=== PATIENT | male | born 1950 | race Caucasian/White ===

== ENCOUNTER 2025-01-03 08:55 | Outpatient (AMB) | payer MEDICARE, SELFPAY ==
--- NOTE | 2025-01-03 08:58 | A.OFFVIS_ITS ---
Intake Visit Reasons: urinary urgency/frequency and hesitation Intake Note: New Patient presents for initial visit for urinary urgency, frequency, and hesitation Urology Medications: none Blood Thinner: Apixaban PVR: 0ml's Political Science Chair Required: No Accompanied by: Self / Same As Patient Allergies No Known Allergies Allergy (Verified 01/03/25 09:33) Medication List - Last Reconciled 01/03/25 by BERNARDINO Goyal apixaban (Eliquis) 5 mg PO BID atorvastatin mg PO DAILY lisinopril mg PO DAILY metoprolol tartrate 50 mg PO BID HPI Comments Details: Carlos A Sullivan is a very pleasant 74-year-old male patient of Dr. Cote he has a past medical history of obesity, hyperlipidemia, tremors, mild aortic insufficiency, paroxysmal AFib, actinic keratosis, seborrheic keratosis, presbyopia, myopia, glaucoma, ETOH abuse, hypertension, and hypercholesteremia. He presents to the office today as a new patient for nocturia. In discussion with the patient today he reports noting over the last year to be having issues with nocturia up to 3 times per night. When asked he otherwise denies any bothersome urinary issues. He denies incontinence, hematuria, dysuria, foul smelling urine, changes to urinary stream, flank pain, fever, and or chills. He reports a previous history of prostatitis many years ago. VALERIA performed smooth and no suspicious nodules palpated. He denies any signs or symptoms of sleep apnea. We discussed potential causes of nocturia as well as further treatment options and risks and benefits of these treatment options. We discussed lifestyle modifications such as limiting fluids 2-3 hours prior to bed. We discussed obtaining PSA and retroperitoneal ultrasound for further assessment evaluation. In office urinalysis results reviewed with the patient today. PVR 0 mL. He otherwise offers no other issues or concerns at this time. [facility] Medical History Class 1 obesity due to excess calories with body mass index (BMI) of 31.0 to 31.9 in adult Body mass index (BMI) of 31.0 to 31.9 in adult Lower urinary tract symptoms (LUTS) Mixed hyperlipidemia Tremor of left hand Dyspnea on exertion Abnormal prostate specific antigen (PSA) Benign-appearing pigmented skin lesion IFG (impaired fasting glucose) Mild AI (aortic insufficiency) Neoplasm of uncertain behavior of skin Atrial fibrillation with rapid ventricular response Paroxysmal atrial fibrillation Primary osteoarthritis of both knees Actinic keratoses Seborrheic keratosis Presbyopia of both eyes Myopia 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 Glaucoma suspect of both eyes Combined forms of age-related cataract of both eyes ETOH abuse Primary hypertension Nevus of face Knee pain Hypercholesteremia Review of Systems Eyes Reports as per HPI ENT Reports no additional complaints Card Reports as per HPI Resp Reports as per HPI GI Reports as per HPI Reports no additional complaints Musc Reports no additional complaints Skin/Breast Reports as per HPI Neuro Reports as per HPI Psych Reports as per HPI Endo Reports no additional complaints Physical Exam Const General: cooperative, comfortable, no acute distress, well developed, alert and awake Nutritional Appearance: overweight Orientation/consciousness: patient oriented x3 Limitations: no limitations HEENT Head: Yes normal to inspection, Yes normocephalic and Yes atraumatic Ears: hearing grossly normal bilaterally Eyes General: appearance normal, both eyes and all related structures Neck Neck: Yes normal visual inspection and Yes trachea midline Chest Chest palpation & inspection: normal inspection of the chest Resp Effort & Inspection: normal respiratory effort and able to speak in complete sentences Cardio Rate: regular rate GI Inspection: Yes normal to inspection General: Yes no CVA tenderness Back/Spine/Pelvis Back: no CVA tenderness Skin General skin exam: no rashes or lesions noted Neuro General: patient oriented x3 Extrem General: Yes normal to inspection Psych Appearance: grossly normal and well kempt Mental Status: mental status grossly normal Speech and movement: Normal speech and movement present and Clear speech present Affect: normal affect Attitude: cooperative Thought process: Normal thought process present Thought content: Normal thought content present Insight: Fair insight present (Psych) Judgement: Fair judgement present (Psych) Office Procedures Post Void Residual Post Residual Void Post Void Residual (PVR): 0 05213-[id number] Void Residual by ultrasound Results AMB Urinalysis, Automated UA Leukoctes 0 Bertram/uL Last Edit by Smith Varela on 01/03/25 09:14 UA Nitrite Last Edit by Smith Varela on 01/03/25 09:14 UA Urobilinogen 0.2 mg/dL Last Edit by Smith Varela on 01/03/25 09:14 UA Protein 0 mg/dL Last Edit by Smith Varela on 01/03/25 09:14 UA pH 6.0 Last Edit by Smith Varela on 01/03/25 09:14 UA Blood 0 José Miguel/uL Last Edit by Smith Varela on 01/03/25 09:14 UA Specific [place] 1.030 Last Edit by Smith Varela on 01/03/25 09:14 UA Ketone Last Edit by Smith Varela on 01/03/25 09:14 UA Bilirubin 0 mg/dL Last Edit by Smith Varela on 01/03/25 09:14 UA Glucose 0 mg/dL Last Edit by Smith Varela on 01/03/25 09:14 Results Reviewed Results Reviewed: Laboratory Last Values Urine pH (Auto) 6.0 01/03/25 09:13 Specific [place] (Auto) 1.030 01/03/25 09:13 Urine Protein (Auto) 0 mg/dL 01/03/25 09:13 Glucose (UA)(Auto) 0 mg/dL 01/03/25 09:13 Urine Blood (Auto) 0 José Miguel/uL 01/03/25 09:13 Urine Bilirubin (Auto) 0 mg/dL 01/03/25 09:13 Urine Urobilinogen (Auto) 0.2 mg/dL 01/03/25 09:13 Leukocyte Esterase (Auto) 0 Bertram/uL 01/03/25 09:13 Assessment & Plan Assessment & Plan (1) Nocturia: Code(s): R35.1 - Nocturia Category: Medical Plan In office urinalysis results reviewed with the patient today; as noted above. PVR 0 mL. VALERIA performed. We discussed potential causes of nocturia as well as further treatment options and risks and benefits of these treatment options. We discussed potential near future in office cystoscopy and or urodynamics for further assessment evaluation. Will obtain PSA for further assessment evaluation. Will obtain retroperitoneal ultrasound for further assessment evaluation. We discussed lifestyle modifications to assist with nocturia. He denies any signs and symptoms of sleep apnea. Follow-up in 1-3 months with imaging, PSA, and PVR; or sooner with any issues, concerns, and or questions. Orders: Orders AMB Urinalysis Automated Today Z13.9 - Encounter for screening, unspecified AMB Post Void Residual by ultrasound Today Z13.9 - Encounter for screening, unspecified US retroperitoneal comp Today R35.1 - Nocturia Prostate Specific Antigen Today R35.1 - Nocturia Patient Instructions: The patient had an opportunity to ask questions regarding the treatment plan. All questions were answered. Physical exam, labs, and imaging were discussed and reviewed in detail. As well as risks, benefits, and discussion of treatment choices. No major barriers to understanding were identified. The patient expressed understanding and agreement with the above treatment plan. The patient was made aware they should contact our office by phone for worsening of their current condition, the appearance of new symptoms, or with any questions or concerns. Compliance is encouraged with any medications and follow up testing that is ordered. It is a privilege to be allowed the opportunity to participate in? your urological care.? Again, if you have any questions or concerns If you have any questions or concerns please do not hesitate to contact me. The office is [phone]. This note is constructed using voice recognition software. While every effort has been made to ensure accuracy naval architect specialist errors may have been included. Yours sincerely, BERNARDINO Goyal Coding Level of Care Code New Pt Level 3 (59991) Diagnoses Nocturia R35.1 CPT Codes Post Residual Void - PVR CPT Code: 38577-[id number] Void Residual by ultrasound ([id number])
--- OUTSIDE RECORDS SUMMARY | 2025-01-03 09:29 | XMS_ITS | Encounter Summary ---
Author Organization [employer] Address [address] [place] [address] [address] [place] [address] Care Team Providers Care Salesperson Florist Supplies Name Role Phone Bita Cote MD Primary Care Provider + Encounter Details Date Type Department Care Team (Latest Contact Info) Description 12/13/2020 Abstract [facility] CONVERSIONS Dental, Provider, DDS Social History Tobacco Use Types Packs/Day Years Used Date Smoking Tobacco: Never Assessed Sex and Gender Information Value Date Recorded Sex Assigned at Male 07/03/2022 7:04 PM EDT Legal Sex Male 5:36 PM EDT Gender Identity Male 07/03/2022 7:04 PM EDT Sexual Orientation Choose not to disclose 2021 7:04 PM EDT documented as of this encounter Plan of Treatment Upcoming Encounters Date Type Department Care Team (Late st Contact Info) Description 01/17/2025 10:00 AM EDT Office Visit [facility] [address] [place] [phone] Bita Cote MD [address] [place] [phone] 02/24/2025 10:00 AM EDT Office Visit [facility] [address] [place] [phone] Tad Babb MD [address] [place] [phone] documented as of this encounter Visit Diagnoses Not on filedocumented in this encounter Care Teams Salesperson Florist Supplies Relationship Specialty Start Date End Date Bita Cote MD [address] [place] [address] PCP - General Family Medicine 08/31/18 documented as of this encounter
--- OUTSIDE RECORDS SUMMARY | 2025-01-03 09:29 | XMS_ITS | Encounter Summary ---
Author Organization [email or web address] Address [address] [place] [address] 7 [place] [address] Care Team Providers Care Senior Analyst Developer Name Role Phone Bita Cote MD Primary Care Provider + Reason for Visit * Reason Comments Med Refill Encounter Details Date Type Department Care Team (Late st Contact Info) Description 01/20/2024 Refill [facility] [address] [place] [address] [phone] Bita Cote MD [address] [place] [address] [phone] Social History Tobacco Use Types Packs/Day Years Used Date Smoking Tobacco: Never Passive Smoke Exposure: Never Smokeless Tobacco: Never Alcohol Use Standard Drinks/Week Comments Yes 3 (1 standard drink = 0.6 oz pur e alcohol) Sex and Gender Information Value Date Recorded [...] Description 01/17/2025 10:00 AM EDT Office Visit [facility] [address] [place] [address] [phone] Bita Cote MD [address] [place] [address] [phone] 02/24/2025 10:00 AM EDT Office Visit [facility] [address] [place] [address] Tad Babb MD [address] [place] [address] documented as of this encounter Visit Diagnoses Not on filedocumented in this encounter Care Teams Senior Analyst Developer Relationship Specialty Start Date End Date Bita Cote MD [address] [place] [phone] PCP - General Family Medicine 08/31/18 documented as of this encounter
--- OUTSIDE RECORDS SUMMARY | 2025-01-03 09:29 | XMS_ITS | Clinical Summary ---
Author Organization [employer] Address [address] [place] [address] 7 [place] [address] Care Team Providers Care Financial Agent Name Role Phone Bita Cote MD Primary Care Provider + Allergies No known active allergies Medications lisinopril 30 MG tablet Take 30 mg by mouth in the morning. Active metoprolol tartrate (Lopressor) 50 MG tablet TAKE 1 TABLET TWICE DAILY (MD APPOINTMENT REQUIRED FOR FURTHER REFILLS) 9 Active diphenhydrAMINE (BENADryl) 25 MG tablet 1-2 tablet as needed Orally at sleep Active flecainide (Tambocor) 100 MG tablet Take by mouth. Activ e Sod Fluoride-Potass ium Nitrate 1.1-5 % pasteIndication s:Dental caries Apply a thin ribbon of SF 5000 Plus to a toothbrush. [place] thoroughly for two minutes. Expectorate after use. For best results, do not eat, drink, or rinse for 30 minutes. 112 g 4 3 Active atorvastatin (Lipitor) 20 MG tablet TAKE 1 TABLET BY MOUTH DAILY 90 tablet 4 Active Eliquis 5 MG tablet Take 5 mg by mouth 2 times daily. Active Active Problems Problem Noted Date Diagnosed Date Lower urinary tract symptoms (LUTS) 09/12/2024 Assessment & Plan (09/12/2024 11:00 AM EST): Most likely BPH, will give referral to urologist per his request. Body mass index (BMI) 31.0-31.9, adult 5 Assessment & Plan (09/12/2024 11:07 AM EST): Discussed re weight reduction options including exercise, life style modifications, diet. Recommended to decrease soda and sugary beverage consumption, increase protein intake with meals (at least 1 portion of protein with each meal) to assist with satiety, increase dietary fiber Recommended at least 150 min/week of moderate intensity exercise. Class 1 obesity due to exces s calories with serious comorbidity and body mass index (BMI) of 31.0 to 31.9 in adult 09/12/2024 Assessment & Plan (09/12/2024 11:08 AM EST): Discussed re weight reduction options including exercise, life style modifications, diet. Recommended to decrease soda and sugary beverage consumption, increase protein intake with meals (at least 1 portion of protein with each meal) to assist with satiety, increase dietary fiber Recommended at least 150 min/week of moderate intensity exercise. ETOH abuse 11/10/2022 Combined forms of age-related cataract of both e yes 11/10/2022 Glaucoma suspect of both eyes 11/10/2022 Overview (09/16/2023): Due to optic nerve appearance both eyes (OU). Previously treated for glaucoma per pt, stopped by doc who felt it wasn't necessary Vitreous degeneration and detachment of right ey e 11/10/2022 Myopia of both eyes 11/10/2022 Presbyopia of both eyes 11/10/2022 Primary osteoarthritis of both knees 11/10/2022 IFG (impaired fasting glucose) 11/10/2022 Assessment & Plan (09/12/2024 11:04 AM EST): I have discussed with patient regarding increasing physicial activity and decrease calorie intake I'll check FBS with next set of labs. To check RBS at next visit. FU with me next visi Hypercholesteremia 11/06/2022 Mild AI (aortic insufficiency) 05/02/2022 Atrial fibrillation with rapid ventricular respo nse 08/17/2018 Overview (11/10/2022): Last Assessment & Plan: History of paroxysmal atrial fibrillation on Coumadin. He is normally in a sinus rhythm and when he has gone into atrial fibrillation in the past this usually reverts back to sinus rhythm within 24 hours. This time he has been in atrial fibrillation with a rapid ventricular response since night. He had some extra Lopressor at home and took 50 mg yesterday afternoon. This improved his rate and he did feel better, but continued to stay in atrial fibrillation. The trigger for this episode may be a high carbohydrate load. He states that he has had atrial fibrillation after a lot of carbohydrates in the past. Additionally, he drinks alcohol daily which is likely contributing to his issues. His heart rate is controlled on a Cardizem drip. I will start oral Cardizem and wean the drip off. We will continue Coumadin. We will obtain an echocardiogram. He thinks he has seen the [facility] in the past and we will consult them. Patient also has recently seen Dr. Shaikh, EP cardiology at [facility]. He has an appointment to see the EP nurse practitioner tomorrow morning. Mixed hyperlipidemia 08/17/2018 Overview (11/10/2022): Last Assessment & Plan: Continue with Lipitor. Assessment & Plan (09/12/2024 11:09 AM EST): He is currently on Atorvastatin. Recommended moderate amount of exercise and increase consumption of fruit, vegetables, fish and high fiber foods. Should decrease consumption of highly saturated fats or trans fats. Knee pain 06/29/2018 Dyspnea on exertion 03/26/2018 Tremor of left hand 03/26/2018 Nevus of face 04/21/2017 Primary hypertension 04/21/2017 Overview (11/10/2022): Last Assessment & Plan: We are giving him diltiazem. Blood pressure at the lower end. I will hold off on his lisinopril. Assessment & Plan (09/12/2024 11:03 AM EST): Controlled. Compliant w/meds Continue lisinopril 30mg. Counseled re low salt diet/increase moderate physical activity. Check home BP BIW and prn CP/MARVIN/CUEVAS Non smoking patient. He declined the COVID immunization. He will have the FLU and PCV20 immunizations administered today. Seborrheic keratosis 04/21/2017 Actinic keratosis 04/21/2017 Assessment & Plan (09/12/2024 11:05 AM EST): Patient has history of Basal Cell CA in the past. I will send referral to Dermatology for skin CA screen. Paroxysmal atrial fibrillation 04/21/2017 Overview (11/10/2022): Last Assessment & Plan: Discontinue metoprolol. the patient is going to start anticoagulation but will look into the cost of the novel agents through his insurance company and would like his anticoagulants managed to you. I will see the patient back as needed. Assessment & Plan (09/12/2024 11:02 AM EST): HR is controlled on Metoprolol, I have advised him to continue taking as he is doing now and FU with cardiology. I have advise for him to take Flecainide and Eliquis daily and FU with cardiology. Neoplasm of uncertain behavior of skin 7 Benign-appearing pigmented skin lesion 7 Abnormal prostate specific antigen (PSA) 016 Resolved Problems Problem Noted Date Diagnosed Date Resolved Date Primary open angle glaucoma of both eyes, mild stage 11/10/2022 09/16/2023 Encounters Date Type Department Care Team Description 11/23/2024 9:00 AM EDT Office Visit [place] [address] [place], [place] [phone] Alex Mendez DDS 11/11/2024 Population Health Risk Score [facility] [address] [phone] Provider, Population Health Generic 10/21/2024 Telephone [facility] [address] [place] [address] Bita Cote MD Care Coordination from Last 3 Months Immunizations Name Administration Dates Next Due Influenza High-dose Quadriva lent Preservative Free 06/28/2020 Influenza injectable quadriv alent IIV4 with preservative 07/08/2017,06/26/2016 Influenza injectable quadriv alent preservative free 07/27/2023,09/11/2021 Influenza, High Dose Seasona l, Preservative Free 09/12/2024,09/27/2019,08/18/2018 Influenza, IIV3, injectable 07/27/2023, 4 Pneumococcal Conjugate PCV 13 09/27/2019 Pneumococcal Polysaccharide PPSV23 02/04/2021 Tdap 09/27/2019,08/28/2014 Zoster, Recombinant 05/03/2021,02/04/2021 Social History Tobacco Use Types Packs/Day Years Used Date Smoking Tobacco: Never Passive Smoke Exposure: Never Smokeless Tobacco: Never Tobacco Cessation:Counseling Given: Not Answered Alcohol Use Standard Drinks/Week Comments Yes 21 (1 standard drink = 0.6 oz pu re alcohol) Housing Stability Answer Date Recorded What is your housing situation today? I have maribel max 09/12/[address] you li ve. Do you have problems with any of the following? None of the above 09/12/2024 Food Insecurity Answer Date Recorded Within the past 12 months, y ou worried that your food would run out before you got money to buy more: Never True 09/12/2024 Within the past 12 months,th e food you bought just didn't last and you didn't have enough money to get more: Never True Transportation Answer Date Recorded In the past 12 months, has l ack of transportation kept you from medical appts, meetings, work or from getting things needed for daily living? No 09/12/2024 Utilities Answer Date Recorded In the past 12 months, has t he electric, gas, oil or water company threatened to shut off services in your home? No 09/12/2024 Depression Answer Date Recorded Patient Health Questionnaire-2 Score 0 09/12/2024 Internet Access Answer Date Recorded Internet Access Q1 No 09/12/2024 Internet Access Q2 I do not want or need it 08/31 Sex and Gender Information Value Date Recorded Sex Assigned at Male 07/03/2022 7:04 PM EDT Legal Sex Male 5:36 PM EDT Gender Identity Male 07/03/2022 7:04 PM EDT Sexual Orientation Choose not to disclose 2021 7:04 PM EDT Last Filed Vital Signs Vital Sign Reading Time Taken Comments Blood Pressure 124/78 09/12/2024 10:08 AM EST Pulse 81 09/12/2024 10:08 AM EST Temperature 35.7 ??C (96.2 ??F) 09/12/2024 10:[address] Respiratory Rate 12 09/12/2024 10:08 AM EST Oxygen Saturation - - Inhaled Oxygen Concentration - - Weight 107 kg (236 lb 2 oz) 09/12/2024 10:08 AM EST Height 185.4 cm (6' 1 ) 09/12/2024 10:08 AM EST Body Mass Index 31.15 09/12/2024 10:08 AM EST Plan of Treatment Upcoming Encounters Date Type Department Care Team (Late st Contact Info) Description 01/17/2025 10:00 AM EDT Office Visit [facility] [address] [place] [phone] Bita Cote MD [address] [place] [address] 02/24/2025 10:00 AM EDT Office Visit [facility] [address] [place] [phone] Tad Babb MD [address] [place], [place] [phone] Health Maintenance Due Date Last Done Comments Lipid Panel 1948 Derm Melanoma Skin Check 1948 Alcohol/Substance Use Screening 1960 Hepatitis C Screening 01/28/1966 RSV Patients and Patients Aged 60 years or older (1 - 1-dose 75+ series) 01/28/2023 Dental Oral Exam 05/10/2023 11/06/2022, , 03/30/2018, Additional history exists Dental Prophylaxis 05/10/2023 11/06/2022, 0 12/13/2020, 03/30/2018, Additional history exists COVID-19 Vaccine ( season) 2024 07/27/2023, 09/11/2021, 12/19/2020, Additional history exists Dental X-Ray: Bitewings 07/21/2025 07/20/20 24, 11/06/2022, 12/13/2020, Additional history exists Depression Screening 09/12/2025 09/12/2024, 09/12/19 25 SDOH Screening 09/12/2025 09/12/2024 Tobacco Screening 09/12/2025 09/12/2024 Dental X-Ray: Full Mouth 07/21/2027 024, 11/06/2022, 01/15/2016 DTaP/Tdap/Td Vaccines (3 - Td or Tdap) 09/27/2029 09/27/2019, 08/28/2014 Pneumococcal Vaccine: 50+ Years Completed 02/04/2021, 09/27/2019 Zoster Vaccines Completed 05/03/2021, 02/04/2021 Influenza Vaccine Completed 09/12/2024, , 07/27/2023, Additional history exists HIB Vaccines Aged Out No longer eligi ble based on patient's age to complete this topic HPV Vaccines Aged Out No longer eligi ble based on patient's age to complete this topic Hepatitis A Vaccines Aged Out No long er eligible based on patient's age to complete this topic Hepatitis B Vaccines Aged Out No long er eligible based on patient's age to complete this topic IPV Vaccines Aged Out No longer eligi ble based on patient's age to complete this topic Meningococcal Vaccine Aged Out No amisha martin eligible based on patient's age to complete this topic RSV under 20 months Aged Out No longe r eligible based on patient's age to complete this topic Rotavirus Vaccines Aged Out No longer eligible based on patient's age to complete this topic Procedures Procedure Name Priority Date/Time Associated Diagnosis Comments CASE PRESENTATION, DETAILED AND EXTENSIVE TREATMENT PLANNING Routine 11/23/2024 9:00 AM EDT 11 ML RESIN-BASED COMPOSITE - 2 SURF, ANTERIOR Routine 11/23/2024 9:00 AM EDT INTRAORAL - COMPLETE SERIES OF RADIOGRAPHIC IMAGES Routine 07/20/2024 9:00 AM EST Full PROPHYLAXIS - ADULT Routine 023 8:30 AM EST Encounter for dental examination PERIODIC ORAL EVALUATION - ESTABLISHED PATIENT Routine 11/06/2022 8:30 AM EST Encounter for dental examination from Last 3 Months or Most Recently Relevant to Health Maintenance Insurance [place] [phone] HSN [facility] STAND[facility] HSN PARTIAL MEDICARE Member Subscriber Plan / Payer (Ef fective 2022-Present) Name:Carlos A Santana Member ID:[id number] Relation to Subscriber:Self Name:Carlos A Santana Subscriber ID:[id number] Payer ID:STATE Group ID:Not on file Type:Medicare Address: [facility] [address] [phone] HSN FULL DENTAL - N FULL (MEDICAID) Care Teams Financial Agent Relationship Specialty Start Date End Date Bita Cote MD [address] [place] [phone] PCP - General Family Medicine 08/31/18
== END 2025-01-03 09:33 | disposition home or self-care (01) ==
LOC: HO.HUSH 08:56
PROVIDERS: PCP Internal Medicine; Visit Provider Nurse Practitioner Family
DX: R35.1 Nocturia (principal); Z13.9 Encounter for screening, unspecified
CPT/HCPCS: 99203

== ENCOUNTER → 2025-01-03 08:55 | Outpatient (BNVA) | payer MEDICARE, SELFPAY | PROVIDERS: PCP Internal Medicine; Visit Provider Nurse Practitioner Family | DX: R35.1 Nocturia (principal) | CPT/HCPCS: 51798; 81003; 99202 ==